=== PATIENT | male | born 1970 | race Caucasian/White ===

== ENCOUNTER 2017-08-15 10:37 | Emergency (ER) | payer OTHER ==
[~2017-08-15] VITALS: Ht 185.4 cm; Wt 104.5 kg
[2017-08-15 11:40] LABS: HEMOGLOBIN 17.3 G/DL (12.5-16.6); MCH 31.6 PG (29.0-34.0); MCV 87.6 FL (86-99); PLATELET COUNT 233 K/uL (156-360); RBC DIS.WIDTH-CV 11.7 % (11.8-14.6); RBC DIS.WIDTH-SD 37.7 % (39-53); RED BLOOD COUNT 5.48 M/uL (4.00-5.50)
[2017-08-15 11:43] LABS: APPEARANCE CLEAR ((CLEAR)); BILIRUBIN NEGATIVE; BLOOD NEGATIVE; COLOR AMBER ((YELLOW)); GLUCOSE (STRIP) NEGATIVE; KETONES 5; LEUKOCYTES NEGATIVE; NITRITE NEGATIVE; PROTEIN (STRIP) 100; SPECIFIC GRAVITY 1.031 (1.000-1.030)
[2017-08-15 11:46] LABS: BACTERIA RARE /HPF; EPITHELIAL CELLS RARE /HPF; MUCUS 1+ /LPF; RED BLOOD CELLS 0-5 /HPF (0-5); UCUL ADDED? NO; WHITE BLOOD CELLS 0-5 /HPF (0-5)
[2017-08-15 11:46] LABS: ALBUMIN 4.7 g/dL (3.2-4.8); CHLORIDE 105 mEq/L (99-109); POTASSIUM 3.9 mEq/L (3.7-5.4); SODIUM 136 mEq/L (136-147)
[2017-08-15 11:48] LABS: GLUCOSE 113 mg/dL (70-99); TOTAL PROTEIN 7.8 g/dL (6.4-8.3)
[2017-08-15 11:50] LABS: TOTAL BILIRUBIN 0.5 mg/dL (0.0-1.0)
[2017-08-15 11:52] LABS: ALKALINE PHOSPHATASE 63 IU/L (3-129); CREATININE 0.9 mg/dL (0.6-1.3)
[2017-08-15 11:53] LABS: AST (GOT) 26 IU/L (2-34); UREA NITROGEN (BUN) 14 mg/dL (9-23)
[2017-08-15 11:54] LABS: GFR ESTIMATE (CALCULATED) > 59 mL/min/ (58.99-99999)
[2017-08-15 11:55] LABS: ALT (GPT) 53 IU/L (3-49)
[2017-08-15 14:26] LABS: LIPASE 22 U/L (1.0-51.0)
[2017-08-15] MEDS ORDERED: CIPRO500 MG PO (16:18)
[2017-08-15] MEDS ORDERED: ZOFRAN ODT4 MG PO (16:18)
[2017-08-15] MEDS ORDERED: BENTYL10 MG PO (16:18)
[2017-08-15] MEDS ORDERED: FLAGYL500 MG PO (16:31)
[2017-08-15 17:15] VITALS: BP 137/90
[2017-08-15 18:00] LABS: C DIFF TOXIN NEGATIVE (NEGATIVE)
== END 2017-08-15 17:16 | disposition home or self-care (01) ==
LOC: EME 10:37
PROVIDERS: Physician Assistant
DX: K52.9 Noninfective gastroenteritis and colitis, unspecified (principal); E78.5 Hyperlipidemia, unspecified; I10 Essential (primary) hypertension; F17.200 Nicotine dependence, unspecified, uncomplicated
CPT/HCPCS: 74177; 80053; 81003; 83690; 85027; 87177; 87206; 87329; 87493; 87506; 99281; 99284; J7120